=== PATIENT | female | born 2005 ===

== ENCOUNTER 2024-06-07 01:16 | Emergency (ER) | payer SELFPAY ==
[2024-06-07 01:28] VITALS: BP 127/85; TEMP 99.3
[2024-06-07] MEDS ORDERED: Ibuprofen 400 MG TAB PO ONE (02:00)
[2024-06-07] MEDS ORDERED: diphenhydrAMINE 25 MG CAP PO ONE (02:00)
[2024-06-07] MEDS ORDERED: Sulfamethoxazole/Trimethoprim 800-160 MG TAB PO ONE (02:00)
[2024-06-07] MEDS ORDERED: Acetaminophen 325 MG TAB PO ONE (02:00)
[2024-06-07 02:35] VITALS: PULSE 78
[2024-06-07] MEDS ORDERED: BACTRIM DS 8001 TAB PO (02:54)
== END 2024-06-07 02:35 | disposition home or self-care (01) ==
LOC: COL.ER 01:16
DX: S70.362A Insect bite (nonvenomous), left thigh, initial encounter (principal); W57.XXXA Bitten or stung by nonvenomous insect and other nonvenomous arthropods, initial encounter

== ENCOUNTER 2024-06-12 13:16 | Emergency (ER) | payer SELFPAY ==
[~2024-06-12] VITALS: Ht 157.5 cm; Wt 75.0 kg
[~2024-06-12 13:16] MED LIST: BACTRIM DS 8001 TAB PO
[2024-06-12 13:22] VITALS: TEMP 98.9
[2024-06-12] MEDS ORDERED: cefTRIAXone 1 G in Water For Injection,Sterile 10 ML IV ONE (14:00)
[2024-06-12] MEDS ORDERED: ATARAX50 MG PO (14:10)
[2024-06-12] MEDS ORDERED: CEPHALEXIN500 M1 PO (14:10)
[2024-06-12 14:58] VITALS: BP 123/79; PULSE 75
== END 2024-06-12 14:58 | disposition home or self-care (01) ==
LOC: COL.ER 13:16
DX: J06.9 Acute upper respiratory infection, unspecified (principal); L03.116 Cellulitis of left lower limb
CPT/HCPCS: J0696